=== PATIENT | male | born 1985 | race Two or more races ===

== ENCOUNTER 2017-07-11 22:20 | Emergency (ER) | payer SELFPAY ==
[~2017-07-11] VITALS: Ht 182.9 cm; Wt 68.0 kg
--- NOTE | 2017-07-11 22:28 | NUR ---
CALLED PT IN [place], NO RESPONSE
[2017-07-11 22:39] VITALS: BP 121/71
== END 2017-07-12 02:35 | disposition home or self-care (01) ==
LOC: ER 22:20
DX: S91.331A Puncture wound without foreign body, right foot, initial encounter (principal); Z23 Encounter for immunization; X58.XXXA Exposure to other specified factors, initial encounter; Y93.02 Activity, running; Y92.89 Other specified places as the place of occurrence of the external cause; Y99.9 Unspecified external cause status
CPT/HCPCS: 73630-TC; 90715; A4217; A4606; Z7610